=== PATIENT | male | born 1990 | race Caucasian/White ===

== ENCOUNTER 2017-04-18 20:24 | Emergency (ER) | payer OTHER ==
[2017-04-18 20:35] VITALS: BP 127/61
--- NOTE | 2017-04-18 20:49 | UC ---
Skin Complaint HPI - HPI Summary HPI Summary: FOUND A TICK ATTACHED RIGHT ANTERIOR THIGH THIS MORNING. REMOVED IT BUT THIS EVENING NOTICED A RED [place] TRIBES AROUND THE BITE SITE. OTHERWISE FEELS WELL. NO FEVER, JOINT PAIN, FRAZIER, MALAISE. THINKS THE TICK WAS ATTACHED FOR LESS THAN 12 HOURS. - History of Current Complaint Chief Complaint: UCBiteInjury Time Seen by Provider: 04/18/17 20:34 Stated Complaint: TICK BITE Hx Obtained From: Patient Pain Intensity: 2 Pain Scale Used: 0-10 Numeric - Allergy/Home Medications Allergies/Adverse Reactions: Allergies Allergy/AdvReac Type Severity Reaction Status Date / Time No Known Allergies Allergy Verified 04/18/17 20:35 Home Medications: Home Medications Loratadine [Claritin 10 MG CAP] 10 mg PO DAILY 04/18/17 [History Confirmed 04/18] Review of Systems Constitutional: Negative Skin: Rash Respiratory: Negative Cardiovascular: Negative Gastrointestinal: Negative All Other Systems Reviewed And Are Negative: Yes PMH/Surg Hx/FS Hx/Imm Hx Previously Healthy: Yes - Surgical History Surgical History: Yes Surgery Procedure, Year, and Place: hernia repair - Family History Known Family History: Positive: Hypertension - Social History Alcohol Use: Weekly Substance Use Type: None Smoking Status (MU): Never Smoked Tobacco Physical Exam Triage Information Reviewed: Yes Appearance: Well-Appearing, No Pain Distress, Well-Nourished Vital Signs: Initial Vital Signs Temp 99.0 F 04/18/17 20:30 Pulse 57 04/18/17 20:30 BP 127/61 04/18/17 20:30 Pulse Ox 99 04/18/17 20:30 Vital Signs Reviewed: Yes Eyes: Positive: Conjunctiva Clear ENT: Positive: Hearing grossly normal Neck: Positive: Supple Respiratory: Positive: No respiratory distress, No accessory muscle use Cardiovascular: Positive: Pulses Normal Abdomen Description: Positive: Soft Musculoskeletal: Positive: No Edema Neurological: Positive: Alert Psychological: Positive: Age Appropriate Behavior Skin: Positive: Other - 2.5CM AREA OF ERYTHEMA WITH CENTRAL 0.5CM DIAMETER THIN RED LINE SURROUNDING TICK BITE SITE. MILDLY TENDER Course/Dx - Diagnoses Provider Diagnoses: TICK BITE, LOCAL IRRITATION Discharge - Discharge Plan Condition: Stable Disposition: HOME Patient Education Materials: Tick Bite (ED) Referrals: Ute Hernandez NP [Primary Care Provider] - If Needed Additional Instructions: The Infectious Disease Society of [place] (IDSA) does not generally recommend antimicrobial prophylaxis for prevention of Lyme disease after a recognized tick bite. However, in areas that are highly endemic for Lyme disease, a single dose of doxycycline may be offered to adult patients (200 mg) who are not and to children older than 8 years of age (4 mg/kg up to a maximum dose of 200 mg) when all of the following circumstances exist: CRITERIA FOR RECEIVING PROPHYLACTIC TREATMENT FOR LYME DISEASE 1) TICK ATTACHED FOR AT LEAST 36 HRS 2) TICK IS AN ADULT OR [place] DEER TICK 3) YOU LIVE IN AN AREA WHERE LYME DISEASE IS PREVALENT (i.e., [place], [place], [place], [place], [place] , [place], [place], [place], [place], [place], [place], [place], [place], [place]) 4) YOU HAVE NO CONTRAINDICATION TO THE MEDICATION (DOXYCYCLINE) 5) PROPHYLAXIS IS BEGUN WITHIN 72 HRS OF TICK REMOVAL SINCE YOU DO NOT MEET ALL THESE CRITERIA THERE IS NO NEED TO GIVE YOU PROPHYLACTIC ANTIBIOTICS. YOUR CHANCES OF DEVELOPING LYME DISEASE ARE EXTREMELY SMALL. BE VIGILANT OF YOUR SYMPTOMS AND DON'T HESITATE TO GET SEEN AGAIN IF YOU DEVELOP UNEXPLAINED FEVER, HEADACHE, JOINT PAIN, BODY ACHES, RASH OR ANY OTHER CONCERNING SYMPTOMS. Antibiotic treatment following a tick bite is not recommended as a means to prevent anaplasmosis, babesiosis, ehrlichiosis, or [place] spotted fever. There is no evidence this practice is effective, and it may simply delay onset of disease. Instead, persons who experience a tick bite should be alert for symptoms suggestive of tickborne illness and consult a physician if fever, rash, or other symptoms of concern develop. THE REDNESS AROUND YOUR TICK BITE SITE IS DUE TO LOCAL IRRITATION AND SHOULD RESOLVE OVER THE NEXT FEW DAYS. NO ACUTE TREATMENT NEEDED AT PRESENT.
--- NOTE | 2017-04-20 18:18 | UC ---
Progress - Progress Note Progress Note: CALLED PT - COURTESY CALL. HE REPORTS THE REDNESS IS ALMOST ALL GONE AND HE IS FEELING WELL. - BRAULIO COOPER MD
== END 2017-04-18 21:00 | disposition home or self-care (01) ==
LOC: UCEAST 20:24
DX: S70.361A Insect bite (nonvenomous), right thigh, initial encounter (principal); W57.XXXA Bitten or stung by nonvenomous insect and other nonvenomous arthropods, initial encounter; Y93.9 Activity, unspecified; Y92.9 Unspecified place or not applicable; Y99.9 Unspecified external cause status
CPT/HCPCS: 99211; G0463